=== PATIENT | female | born 1980 | race American Indian/Alaskan Native ===

== ENCOUNTER 2017-12-03 11:55 | Emergency (ER) | payer MEDICAID, OTHER ==
[2017-12-03] MEDS ORDERED: Sodium Chloride 0.9% 10 ML Syringe FLUSH PRN (12:25)
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
[2017-12-03 12:58] LABS: ANION GAP 9.9; CHLORIDE,CL 108 mmol/L (101-111); SODIUM,NA 139 mmol/L (135-145)
[2017-12-03] MEDS ORDERED: HYDROmorphone 0.5 MG/0.5 ML Syringe IVPUSH ONE (13:52)
--- NOTE | 2017-12-03 13:57 | CT ---
Clinical history: 37-year-old female headache and "swooshing" in the ear following a recent head inju ry. Scan technique: Volume acquisition of data emergency unenhanced CT scan of the head and brain obtaine d while the patient was lying supine on the Siemens multi slice CT scanner [place], [place]. All data archived in the PACS system for storage and study (bone/brain windows ). Interpretation: Uniformly thick bony calvarium without sign of skull fracture, underlying brain contusion or epidural /subdural hematoma. (There appears to be extracranial scalp contusion, anteriorly on the right frontal convexity. Clinica l?) Symmetric perez-white matter pattern with underlying mirror-image normal ventricular system. No supratentorial or posterior fossa mass lesion (small arachnoid cyst posteriorly). Midline pineal a nd choroid plexus calcifications. Symmetric clear pneumatization of the mastoid and paranasal sinuses. Normal TMJs. No basal skull frac ture. No focal areas of ischemic infarct and no sign of acute intracerebral/intraventricular/subarachnoid b leed. CONCLUSION: No sign of skull fracture or closed head injury.
== END 2017-12-03 14:57 | disposition home or self-care (01) ==
LOC: DL.ED 11:55
DX: S06.9X0A Unspecified intracranial injury without loss of consciousness, initial encounter (principal); F17.210 Nicotine dependence, cigarettes, uncomplicated; W22.8XXA Striking against or struck by other objects, initial encounter; Y08.89XA Assault by other specified means, initial encounter
CPT/HCPCS: 36415; 70450; 80053; 80305; 81001; 81025; 85025; 96374; 99284; G0480; J1170